=== PATIENT | male | born 1975 | race Caucasian/White ===

== ENCOUNTER → 2020-02-25 | Outpatient (CLI) | payer OTHER | LOC: LAB 09:39 | DX: Z02.83 Encounter for blood-alcohol and blood-drug test (principal) | CPT/HCPCS: 36415 ==

== ENCOUNTER 2020-11-04 18:14 | Emergency (ER) | payer OTHER | END 2020-11-04 18:17 | disposition left against medical advice (07) | LOC: ER1 18:14 | DX: Z53.21 Procedure and treatment not carried out due to patient leaving prior to being seen by health care provider (principal) ==